=== PATIENT | female | born 1960 | race Caucasian/White ===

== ENCOUNTER → 2022-06-06 | Outpatient (REF) | payer MEDICARE, OTHER ==
[2022-06-08 08:11] LABS: LDL DIRECT 86 mg/dL (0-99)
== END ==
LOC: M LAB REF 19:01
PROVIDERS: ATTEND Internal Medicine
DX: Z13.220 Encounter for screening for lipoid disorders (principal)

== ENCOUNTER → 2024-02-27 | Outpatient (CLI) | payer MEDICARE, OTHER | LOC: M WHC 09:52 | PROVIDERS: ATTEND Internal Medicine | DX: Z13.820 Encounter for screening for osteoporosis (principal); M85.851 Other specified disorders of bone density and structure, right thigh; M85.852 Other specified disorders of bone density and structure, left thigh ==

== ENCOUNTER → 2025-02-26 | Outpatient (CLI) | payer MEDICARE, OTHER | LOC: M WHC 10:34 | PROVIDERS: ATTEND Internal Medicine | DX: Z12.31 Encounter for screening mammogram for malignant neoplasm of breast (principal); R92.343 Mammographic extreme density, bilateral breasts ==

== ENCOUNTER → 2025-10-15 | Outpatient (REF) | payer MEDICARE, OTHER ==
[2025-10-15 15:27] LABS: IRON (FE) 114.0 UG/DL (50-170); PERCENT SATURATION 29.8 % (13.2-45.0)
[2025-10-15 15:29] LABS: VITAMIN B12 LEVEL 636.0 PG/ML (211-911)
== END ==
LOC: M LAB REF 14:39
PROVIDERS: ATTEND Internal Medicine
DX: M81.0 Age-related osteoporosis without current pathological fracture (principal); I73.00 Raynaud's syndrome without gangrene; R63.6 Underweight; D72.829 Elevated white blood cell count, unspecified